=== PATIENT | male | born 1955 | race Two or more races ===

== ENCOUNTER 2020-09-17 07:16 | Inpatient (IN) | payer MEDICARE, OTHER ==
[~2020-09-17] VITALS: Ht 172.7 cm; Wt 59.0 kg
[2020-09-17] VITALS (14 sets, daily range): BP systolic 102–127; BP diastolic 58–81
--- NOTE | 2020-09-17 07:16 | NUR ---
PT [address]IBRA [address] C/O SOB AND RESPIRATORY DISTRESS, UPON ARRIVAL PT ON CPAP SAT AT 95%. HOOKED TO LUBE ATTENDANT, CALLED RT AT BEDSIDE. WILL CONTINUE TO MONITOR.
--- NOTE | 2020-09-17 07:17 | NUR ---
RT AT BEDSIDE.
--- NOTE | 2020-09-17 07:18 | NUR ---
IV LINE ESTABLISHED BLOOD DRAWN AND SENT TO LAB.
[2020-09-17] MEDS ORDERED: ALBUTEROL FS 2.5 MG/3 ML VIAL.NEB ONE (07:23)
[2020-09-17] MEDS ORDERED: DEXAMETHASONE SOD PHOSPHATE 4 MG/ML VIAL ONE (07:23)
[2020-09-17] MEDS ORDERED: IPRATROPIUM NEB FS 0.5 MG/2.5 ML AMPUL.NEB ONE (07:23)
[2020-09-17] MEDS ORDERED: ALBUTEROL FS 2.5 MG/3 ML VIAL.NEB CONTNEB ONE (07:30)
[2020-09-17] MEDS ORDERED: IPRATROPIUM NEB FS 0.5 MG/2.5 ML AMPUL.NEB NEB ONE (07:30)
[2020-09-17] MEDS ORDERED: DEXAMETHASONE SOD PHOSPHATE 10 MG/ML VIAL IV ONE (07:30)
--- NOTE | 2020-09-17 07:35 | NUR ---
RT AT BEDSIDE FOR BIPAP SET UP.
--- NOTE | 2020-09-17 07:35 | NUR ---
COVID SPECIMEN OBTAINED AND SENT TO LAB.
[2020-09-17] MEDS ORDERED: ALBU18HF2 IH (07:45)
[2020-09-17] MEDS ORDERED: METF-440 PO (07:45)
[2020-09-17 07:57] LABS: BASOPHILS # (AUTO) 0.1 /CMM (0.0-0.2); BASOPHILS % (AUTO) 0.8 % (0.0-2.0); EOSINOPHILS % (AUTO) 14.8 % (0.0-6.0); HEMATOCRIT 51 % (39-51); HEMOGLOBIN 16.8 g/dL (13.5-17.5); LYMPHOCYTES # (AUTO) 4.4 /CMM (0.8-4.8); LYMPHOCYTES % (AUTO) 41.6 % (20.0-44.0); MEAN CORPUSCULAR HGB CONC 33 g/dl (31.0-36.0); MEAN CORPUSCULAR VOLUME 92 fL (80-96); MONOCYTES # (AUTO) 0.7 /CMM (0.1-1.30); MONOCYTES % (AUTO) 6.4 % (2.0-12.0); NEUTROPHILS # (AUTO) 3.8 /CMM (1.8-8.9); NEUTROPHILS % (AUTO) 36.4 % (43.0-81.0); PLATELET COUNT (AUTO) 430 /CMM (150-450); RED BLOOD CELL COUNT(AUTO) 5.53 MIL/uL (4.5-6.0); WHITE BLOOD COUNT (AUTO) 10.5 K/uL (4.3-11.0)
[2020-09-17] MEDS ORDERED: IV NS 0.9% 500 ML BAG IV ONE (08:00)
--- NOTE | 2020-09-17 08:00 | NUR ---
BICYCLE II ASSEMBLER AT BEDSIDE FOR XRAY.
[2020-09-17 08:12] LABS: CALCIUM, SERUM 8.4 mg/dL (8.5-10.1); CARBON DIOXIDE 21 mmol/L (21-32); CHLORIDE 102 mmol/L (98-107); CREATININE 1.1 mg/dL (0.6-1.3); GLUCOSE 172 mg/dL (74-106); POTASSIUM 4.1 mmol/L (3.5-5.1); SODIUM SERUM 138 mmol/L (136-145); UREA NITROGEN, BLOOD 12 mg/dL (7-18)
[2020-09-17 08:25] LABS: ALANINE AMINOTRANSFERASE 30 U/L (12-78); ALKALINE PHOSPHATASE 94 U/L (46-116); ASPARTATE AMINOTRANSFERASE 18 U/L (15-37); BILIRUBIN,DIRECT 0.1 mg/dL (0.0-0.2); BILIRUBIN,TOTAL 0.4 mg/dL (0.2-1.0); TOTAL PROTEIN, SERUM 7.7 g/dL (6.4-8.2)
--- NOTE | 2020-09-17 08:26 | NUR ---
PANEL ON-CALL PAGED
--- NOTE | 2020-09-17 08:30 | NUR ---
received a call from the lab regarding covid result "negative".
--- NOTE | 2020-09-17 08:50 | NUR ---
CALLED HOUSE SUP FOR ICU BED.
[2020-09-17] MEDS ORDERED: CEFTRIAXONE 1GM BAG (ER ONLY) 1 GM/50 ML PIGGYBACK IV ONE (09:00)
[2020-09-17] MEDS ORDERED: CEFTRIAXONE 1GM BAG (ER ONLY) 50 ML IV ONE (09:25)
[2020-09-17] MEDS ORDERED: ACETAMINOPHEN 650 MG/SUPP.RECT RC PRN (09:30)
[2020-09-17] MEDS ORDERED: ONDANSETRON HCL/PF 4 MG/2 ML VIAL IVP PRN (09:30)
[2020-09-17] MEDS ORDERED: DEXTROSE 50%-WATER 50 ML DISP.SYRIN IV PRN (09:30)
[2020-09-17] MEDS ORDERED: ALBUTEROL SULFATE INH 18 GM HFA.AER.AD IH PRN (09:30)
--- NOTE | 2020-09-17 09:49 | NUR ---
BED [id number]
--- NOTE | 2020-09-17 10:07 | NUR ---
CALLED WOOD GLUER NOT AVAILABLE. WILL CALL BACK IN 10 MINS.
--- NOTE | 2020-09-17 10:30 | NUR ---
AT BEDSIDE FOR EVAL.
--- NOTE | 2020-09-17 10:35 | NUR ---
REPORT GIVEN TO ADRIANNE LEONARD FOR BOBBY.
[2020-09-17] MEDS: PANTOPRAZOLE 40 MG VIAL IV SCH (11:46)
[2020-09-17] MEDS: ENOXAPARIN SODIUM 40 MG/0.4 ML DISP.SYRIN SQ SCH (11:46)
[2020-09-17] MEDS: METFORMIN 500 MG TABLET PO SCH ×2 (11:47→16:56)
[2020-09-17] MEDS: BLOOD SUGAR DIAGNOSTIC 1 EACH STRIP IN SCH ×2 (12:01→17:20)
--- NOTE | 2020-09-17 12:44 | NUR ---
PRINCIPAL DATA ARCHITECT NOTE: RECEIVED PATIENT FROM ER AT 10:55. PATIENT IS AAOX4, RESPONDS APPROPRIATELY, PRIMARILY KOREAN SPEAKING. PATIENT IS SATING WELL ON 2L/MIN VIA NC. NO SIGNS OF ACUTE DISTRESS NOTED AT THIS TIME. PATIENT'S SKIN WAS CHECKED BUT REFUSED TO REMOVE PANTS AT THIS TIME FOR FULL SKIN CHECK, WILL TRY AGAIN LATER. PATIENT WAS NPO STATUS, PER LAVERNE FARRELL, TERRITORY REPRESENTATIVE OK TO START ON DIET AND OK TO GIVE MORNING MEDS THAT WERE MISSED. LACTIC ACID IS CURRENTLY TRENDING DOWN. PATIENT IS AMBULATORY, STEADY GAIT. SAFETY MEASURES IMPLEMENTED, BED IN LOWEST POSITION, LOCKED, SIDE RAILS UP, CALL LIGHT WITHIN REACH. WILL CONTINUE TO MONITOR PATIENT FOR CHANGES. Addendum: 09/17/20 at 1314 by JOY STILES RN #[id number], C/D/I, FLUSHING WELL, NO SIGNS OF COMPLICATIONS NOTED. SR IN THE 80S NOTED ON THE MONITOR.
[2020-09-17] MEDS ORDERED: methylPREDNISolone SOD SUCC 40 MG/ML VIAL IV SCH (13:00)
[2020-09-17] MEDS: ALBUTEROL FS 2.5 MG/0.5 ML VIAL.NEB NEB SCH ×2 (13:30→19:55)
[2020-09-17] MEDS ORDERED: IPRATROPIUM NEB FS 0.5 MG/2.5 ML AMPUL.NEB NEB SCH ×2 (15:00→18:08)
[2020-09-17] MEDS: IV NS 0.9% 1,000 ML IV PRN (16:37)
[2020-09-17] MEDS: INSULIN REGULAR, HUMAN 100 UNIT/ML 3 ML VIAL SQ PRN (17:21)
--- NOTE | 2020-09-17 18:56 | NUR ---
PER DILMA, RX, INPUT 0.25 G WHEN SCANNING PROVENTIL IN EMAR AND FOLLOW DOSING INSTRUCTIONS (2 PUFFS)
--- NOTE | 2020-09-17 19:00 | NUR ---
Patient is in no acute distress in bed. patient is a/o x 4 and able to make needs known. Patient is majority ecuadorean speaking with some maori speaking. Patient not c/o any sob, difficulty breathing or pain at this time. bilateral IVs are clean dry intact and patent with NS @ 75 ml/hr. bed in low lock position with rails up x 2. call light within reach and all safety measures ensured and carried out. will continue to monitor.
--- NOTE | 2020-09-17 19:01 | NUR ---
RN CLOSING NOTE: PATIENT REMAINS IN ROOM. NO ACUTE DISTRESS NOTED AT THIS PRESENT TIME. SR IN THE 60S NOTED ON THE BEDSIDE MONITOR. SAFETY MEASURES IMPLEMENTED, BED IN LOWEST POSITION, LOCKED, SIDE RAILS UP, CALL LIGHT WITHIN REACH. WILL ENDORSE TO ONCOMING SHIFT RN FOR CONTINUITY OF CARE.
[2020-09-17] MEDS: IPRATROPIUM NEB FS 0.5 MG/2.5 ML AMPUL.NEB NEB SCH (20:21)
[2020-09-17] MEDS: methylPREDNISolone SOD SUCC 125 MG/2ML VIAL IV SCH (22:33)
[2020-09-18] VITALS (15 sets, daily range): BP systolic 99–137; BP diastolic 57–85
[2020-09-18] MEDS: BLOOD SUGAR DIAGNOSTIC 1 EACH STRIP IN SCH ×2 (01:11→05:24)
[2020-09-18] MEDS: INSULIN REGULAR, HUMAN 100 UNIT/ML 3 ML VIAL SQ PRN ×2 (01:15→05:30)
[2020-09-18] MEDS: IPRATROPIUM NEB FS 0.5 MG/2.5 ML AMPUL.NEB NEB SCH ×3 (01:30→13:59)
[2020-09-18] MEDS: ALBUTEROL FS 2.5 MG/0.5 ML VIAL.NEB NEB SCH ×3 (01:30→13:59)
[2020-09-18 04:14] LABS: BASOPHILS % (AUTO) 0.2 % (0.0-2.0); HEMATOCRIT 47 % (39-51); HEMOGLOBIN 15.1 g/dL (13.5-17.5); LYMPHOCYTES # (AUTO) 0.9 /CMM (0.8-4.8); LYMPHOCYTES % (AUTO) 6.6 % (20.0-44.0); MEAN CORPUSCULAR HGB CONC 33 g/dl (31.0-36.0); MEAN CORPUSCULAR VOLUME 92 fL (80-96); MONOCYTES # (AUTO) 0.2 /CMM (0.1-1.30); MONOCYTES % (AUTO) 1.3 % (2.0-12.0); NEUTROPHILS # (AUTO) 12.6 /CMM (1.8-8.9); NEUTROPHILS % (AUTO) 91.9 % (43.0-81.0); PLATELET COUNT (AUTO) 325 /CMM (150-450); RED BLOOD CELL COUNT(AUTO) 5.08 MIL/uL (4.5-6.0); WHITE BLOOD COUNT (AUTO) 13.8 K/uL (4.3-11.0)
[2020-09-18 04:29] LABS: ALBUMIN 3.4 g/dL (3.4-5.0); BILIRUBIN,TOTAL 0.4 mg/dL (0.2-1.0); CALCIUM, SERUM 8.5 mg/dL (8.5-10.1); CREATININE 0.9 mg/dL (0.6-1.3); POTASSIUM 4.2 mmol/L (3.5-5.1); TOTAL PROTEIN, SERUM 6.5 g/dL (6.4-8.2)
[2020-09-18] MEDS: methylPREDNISolone SOD SUCC 125 MG/2ML VIAL IV SCH ×2 (05:24→13:48)
--- NOTE | 2020-09-18 06:30 | NUR ---
Received call from Dr. Pace that due to patient not on Cardizem drip and Heart rate more controlled at 70-80s patient will not have the JHONATAN and cardioversion this am. Addendum: 09/18/20 at 0738 by CARLOS ENRIQUE STERLING RN Wrong note placed on wrong patient. Please disregard.
[2020-09-18] MEDS ORDERED: ALBUTEROL SULFATE INH 18 GM HFA.AER.AD IH PRN (07:00)
--- NOTE | 2020-09-18 07:34 | NUR ---
Patient remains in no acute distress in bed. patient did not have any significant change in condition during the shift. all needs met, all orders carried out. will endorse care to am rn for continuity of care.
[2020-09-18] MEDS ORDERED: CEFTRIAXONE 1 G in IV D5W 50 ML IV SCH (09:00)
[2020-09-18] MEDS ORDERED: DEXTROSE 50%-WATER 50 ML DISP.SYRIN IV PRN (09:30)
[2020-09-18] MEDS ORDERED: INSULIN REGULAR, HUMAN 100 UNIT/ML 3 ML VIAL SQ PRN (09:30)
[2020-09-18] MEDS: IV NS 0.9% 1,000 ML IV PRN (09:36)
[2020-09-18] MEDS: METFORMIN 500 MG TABLET PO SCH (09:36)
[2020-09-18] MEDS: PANTOPRAZOLE 40 MG VIAL IV SCH (09:36)
[2020-09-18] MEDS: ENOXAPARIN SODIUM 40 MG/0.4 ML DISP.SYRIN SQ SCH (09:37)
[2020-09-18] MEDS ORDERED: PRED20TA PO (11:16)
[2020-09-18 11:35] LABS: ABG BASE EXCESS -2.9 mmol/L; ABG OXYGEN SATURATION 96.8 % (92.0-98.5); ABG PCO2 28.1 mmHg (35.0-45.0); ABG PH 7.457 (7.350-7.450); ABG PO2 80.8 mmHg (75.0-100.0); AaDO2 35.3 mmHg; MetHb 0.3 % (0.0-1.5); O2Hb 95.5 % (94.0-97.0); SITE, ABG Right Radial; VENT MODE, BG Room Air
[2020-09-18] MEDS ORDERED: BLOOD SUGAR DIAGNOSTIC 1 EACH STRIP IN SCH (12:00)
[2020-09-18] MEDS ORDERED: INFLUENZA VACCINE 2020-21 0.5 ML DISP.SYRIN IM ONE (13:30)
--- NOTE | 2020-09-18 14:37 | NUR ---
PT DISCHARGED AT THIS TIME VIA WHEELCHAIR, PT'S DAUGHTER TO DRIVE PATIENT HOME. PT SIGNED BELONGINGS LIST, TOOK ALL BELONGINGS HOME WITH HIM. PT HAS NO WOUNDS, NO PICTURES NEEDED TO BE TAKEN ON DISCHARGE. IV SITES REMOVED PRIOR TO DISCHARGE WITHOUT DIFFICULTY, CATH TIPS INTACT. DISCHARGE INSTRUCTIONS SIGNED AND GIVEN TO PATIENT, COPY ON CHART.
== END 2020-09-18 15:01 | disposition home or self-care (01) | DRG 189 ==
LOC: ER 07:18 → EDBD 07:18 → ICU 10:05
PROVIDERS: ADMIT Nurse Practitioner Acute Care
DX: J96.01 Acute respiratory failure with hypoxia (principal); J45.901 Unspecified asthma with (acute) exacerbation; J44.1 Chronic obstructive pulmonary disease with (acute) exacerbation; E87.2 Acidosis; E86.0 Dehydration; D75.1 Secondary polycythemia; Z79.84 Long term (current) use of oral hypoglycemic drugs; Z79.51 Long term (current) use of inhaled steroids; E11.65 Type 2 diabetes mellitus with hyperglycemia
CPT/HCPCS: 36415; 36600; 71045-TC; 80048-TC; 80053-TC; 80076-TC; 82962-TC; 83605-TC; 83735-TC; 84484-TC; 85025-TC; 85730-TC; 87040-TC; 87081-TC; 94799-TC; C9113; C9803; G0378; J0696; J1100; J1650; J1815; J2920; J2930; J7030; J7060; Q2036